=== PATIENT | female | born 1985 | race Caucasian/White ===

== ENCOUNTER 2019-05-10 11:56 | Emergency (ER) | payer OTHER ==
[~2019-05-10] VITALS: Ht 157.5 cm; Wt 63.5 kg
[2019-05-10] MEDS ORDERED: NORCO 5-325 TA1 EAC1 PO (13:24)
[2019-05-10 14:09] VITALS: BP 130/73
== END 2019-05-10 14:19 | disposition home or self-care (01) ==
LOC: ER 11:56
DX: S52.592A Other fractures of lower end of left radius, initial encounter for closed fracture (principal); F17.210 Nicotine dependence, cigarettes, uncomplicated; W21.01XA Struck by football, initial encounter; Y93.89 Activity, other specified; Y92.89 Other specified places as the place of occurrence of the external cause; Y99.8 Other external cause status